=== PATIENT | female | born 1955 | race Caucasian/White ===

== ENCOUNTER 2018-12-20 12:13 | Observation (INO) ==
[2018-12-20 12:54] LABS: Bilirubin,Urine Negative (Negative); Clarity,Urine Clear (Clear); Glucose,Urine (UA) Negative (Negative); Leukocyte Esterase,Urine Negative (Negative); Nitrite,Urine Negative (Negative); Urobilinogen,Urine 0.2 mg/dL (Less than 2)
[2018-12-20 12:57] LABS: Color,Urine Straw (Yellw/Straw)
--- NOTE | 2018-12-20 13:09 | ED ---
HPI General Chief Complaint: Arrhythmia / Palpitations Stated Complaint: Palpatations/Irregular HR Per Pt Time Seen by Provider: 12/20/18 12:42 Source: patient and family Mode of arrival: ambulatory Limitations: no limitations History of Present Illness HPI narrative: Patient presents with complaints of palpitations intermittently over the last month however in the last 3-4 days they have become increasingly worse and more persistent. States she is not having palpitations now. Admits to the of a friend this week and the of her dog last night. Nondiabetic. Non-smoker. No radiation to left arm or left jaw. No diaphoresis. No shortness of breath. Reports a history of anxiety. No family history of cardiac disease. No personal history of cardiac disease. MD complaint: Reports rapid heart beat and "heart racing" Onset (ago): month(s) (1, worse over the last 3-4 days) Duration: intermittent Severity: moderate Context: Reports occurred during rest and occurred during exertion Arrhythmia history: Reports other (History of tachycardia approximately 40 years ago after the of her daughter) Associated symptoms: Reports denies other symptoms Treatments prior to arrival: Reports vagal maneuvers Related Data Home Medications Medication Instructions Recorded Confirmed Ca-D3-mag ap-lseo-fiz-dawson-bor 1 tab PO DAILY 12/20/18 12/20/18 [Calcium 600-D3 Plus] alprazolam [Xanax] 0.5 mg PO HS PRN 12/20/18 12/20/18 aspirin [Aspirin Low Dose] 81 mg PO QPM 12/20/18 12/20/18 biotin 10,000 mcg PO DAILY 12/20/18 12/20/18 citalopram [Celexa] 20 mg PO DAILY 12/20/18 12/20/18 conjugated estrogens [Premarin] 0.3 mg PO DAILY 12/20/18 12/20/18 cyanocobalamin (vitamin B-12) 1,000 mcg PO DAILY 12/20/18 12/20/18 [Vitamin B-12] ergocalciferol (vitamin D2) 1 unit PO WEEKLY 12/20/18 12/20/18 [Ergocal] wqnulmcymlq-yvizlhqya-lhl C-Mn 1 tab PO QPM 12/20/18 12/20/18 [Glucosamine Chondroitin MaxStr] levothyroxine [Synthroid] 88 mcg PO DAILY 12/20/18 12/20/18 meloxicam 15 mg PO QPM 12/20/18 12/20/18 montelukast [Singulair] 10 mg PO QAM 12/20/18 12/20/18 simvastatin [Zocor] 40 mg PO QPM 12/20/18 12/20/18 teriparatide [Forteo] 20 mcg SUBCUT DAILY 12/20/18 12/20/18 vit C-vit V-kkizfg-jsx-om-3 1 cap PO QPM 12/20/18 12/20/18 [Ocuvite] zolpidem [Ambien] 1 tab PO HS 12/20/18 12/20/18 Allergies Allergy/AdvReac Type Severity Reaction Status Date / Time No Known Allergies Allergy Verified 12/20/18 12:15 Review of Systems ROS: all other systems reviewed are negative [facility] Medical History Medical History Bladder spasms (Acute) COPD (chronic obstructive pulmonary disease) (Acute) Depression (Acute) High cholesterol (Acute) Hx of hysterectomy (Acute) Hypothyroidism (Acute) Osteoarthritis (Acute) Osteoporosis (Acute) Liao syndrome (Acute) Scoliosis (Acute) Surgical History Surgical History Hx of breast augmentation (Acute) Hx of cholecystectomy (Acute) Hx of thumb surgery (Acute) Hx of tubal ligation (Acute) Social History Social History Substance History: No History of Abuse Second Hand Smoke Exposure: No Smoking Status: Unknown if ever smoked How Often Do You Have a Drink Containing Alcohol: Monthly or less Recent Travel in [facility] within the Last 8 Weeks: No Recent Out of Country Travel within the Last 8 Weeks: No Immunization History Tetanus Immunization: <5 Years Exam Narrative Exam Narrative: GENERAL: Well-nourished, well-developed patient. SKIN: Focused skin assessment warm/dry. HEAD: Normocephalic. EYES: No scleral icterus. No injection or drainage. NECK: Supple, trachea midline. No JVD or lymphadenopathy. CARDIOVASCULAR: Regular rate and rhythm without murmurs, gallops, or rubs. RESPIRATORY: Breath sounds equal bilaterally. No accessory muscle use. GASTROINTESTINAL: Abdomen soft, normal bowel sounds, non-tender, nondistended. MUSCULOSKELETAL: No cyanosis, or edema. BACK: Nontender without obvious deformity. No CVA tenderness. Course Initial Documented Vital Signs Temperature 98.5 F 12/20/18 12:14 Pulse Rate 98 H 12/20/18 12:14 Respiratory Rate 18 12/20/18 12:14 Blood Pressure 191/83 H 12/20/18 12:14 Pulse Oximetry 99 12/20/18 12:14 Last Documented Vital Signs Temperature 98.5 F 12/20/18 12:14 Pulse Rate 80 12/20/18 15:24 Respiratory Rate 18 12/20/18 15:24 Blood Pressure 162/77 H 12/20/18 15:24 Pulse Oximetry 98 12/20/18 15:24 Medical Decision Making MDM Narrative Medical decision making narrative: Patient resting comfortably. Spoke with Dr. Salinas who recommended observation admission and stress test in the morning. Spoke with Dr. Monson who is in agreement will admit. Medical Screen Exam Complete: Yes Emergency Medical Condition: Yes Differential Diagnosis Differential Diagnosis: Dysrhythmia, palpitations, SVT, anxiety, acute coronary syndrome Medical Records Medical records reviewed: Yes I reviewed the patient's medical records. Lab Data Lab results reviewed: Yes I reviewed the patient's lab results. Result diagrams: 12/20/18 13:15 12/20/18 13:15 Lab Results 12/20/18 12/20/18 12/20/18 Range/Units 12:29 13:15 13:15 CBC w Diff Auto diff final WBC 8.4 (4.0-11.0) th/mm3 RBC 4.48 (4.00-5.30) mil/mm3 Hgb 14.0 (11.6-15.3) gm/dL Hct 42.4 (35.0-46.0) % MCV 94.6 (80.0-100.0) fL MCH 31.3 (27.0-34.0) pg MCHC 33.1 (32.0-36.0) % RDW 14.1 (11.6-17.2) % Plt Count 285 (150-450) th/mm3 MPV 7.6 (7.0-11.0) fL Neut % (Auto) 68.0 (16.0-70.0) % Lymph % (Auto) 22.0 (9.0-44.0) % [place] % (Auto) 8.7 H (0.0-8.0) % Eos % (Auto) 0.7 (0.0-4.0) % Baso % (Auto) 0.6 (0.0-2.0) % Neut # (Auto) 5.7 (1.8-7.7) th/mm3 Lymph # (Auto) 1.8 (1.0-4.8) th/mm3 [place] # (Auto) 0.7 (0.0-0.9) th/mm3 Eos # (Auto) 0.1 (0.0-0.4) th/mm3 Baso # (Auto) 0.1 (0.0-0.2) th/mm3 WBC Differential . Differential Comment . Sodium 140 (136-145) meq/L Potassium 3.8 (3.5-5.1) meq/L Chloride 103 (98-107) meq/L Carbon Dioxide 30.0 (21.0-32.0) meq/L Anion Gap 7 (5-15) meq/L BUN 11 (7-18) mg/dL Creatinine 0.74 (0.50-1.00) mg/dL Estimated GFR 79 L (>89) mL/min Random Glucose 95 (74-106) mg/dL Calcium 10.1 (8.5-10.1) mg/dL Total Bilirubin 0.3 (0.2-1.0) mg/dL AST 20 (15-37) U/L ALT 20 (10-53) U/L Alkaline Phosphatase 108 (45-117) U/L Troponin I 0.25 H (0.02-0.05) ng/mL Total Protein 7.9 (6.4-8.2) g/dL Albumin 4.2 (3.4-5.0) g/dL Ur Collection Type Clean catch Urine Color Straw (Yellw/Straw) Urine Clarity Clear (Clear) Urine pH 6.0 (5.0-8.5) Ur Specific [place] 1.020 (1.002-1.035) Urine Protein Negative (Neg-Trace) mg/dL Urine Glucose (UA) Negative (Negative) mg/dL Urine Ketones Negative (Negative) mg/dL Urine Occult Blood Trace (Negative) Urine Nitrate Negative (Negative) Urine Bilirubin Negative (Negative) Urine Urobilinogen 0.2 (Less than 2) mg/dL Ur Leukocyte Esterase Negative (Negative) Urine WBC 0-5 (0-5) /hpf Ur Squamous Epith Cells 0-5 (0-5) /hpf Micro UA Comment Culture not ind Ur Microscopic Review Microscopic reviewed Urine Culture Comments Culture not ind Imaging Data Radiologist's impression: Chest X-Ray 12/20/18 13:05 CONCLUSION: Hyperinflation without failure Small patchy areas of airspace disease in both lungs. CT scan may be of benefit. ECG Data Attestation: I personally reviewed and interpreted this ECG as follows: ( Initial EKG revealed sinus tachycardia with frequent supraventricular premature complexes nonspecific ST wave abnormalities, ventricular rate of 110. Second EKG reveals sinus rhythm again with occasional supraventricular premature complexes rate of [address] changes in V3.) Discharge Plan Discharge Disposition Patient Disposition: ED Admit(ED Internal Use Only) Discharge Condition Condition: Good Discharge Order Discharge Orders: ED Use Only Admit Order (Routine); Ordered 12/20/18 Ordered By: Bear Bond Discharge Details Diagnosis: Elevated troponin I level, Heart palpitations Physicians Team ED Provider: Bear Bond Primary Care Provider: Mercedes Flanagan Attending Provider: Memo Curran Status ED Status: Admitted Observation Patient
[2018-12-20 13:18] LABS: Squamous Epithelial Cell,Urine 0-5 /hpf (0-5); WBC,Urine 0-5 /hpf (0-5)
[2018-12-20 13:31] LABS: Baso # (Auto) 0.1 th/mm3 (0.0-0.2); Baso % (Auto) 0.6 % (0.0-2.0); Eos # (Auto) 0.1 th/mm3 (0.0-0.4); Eos % (Auto) 0.7 % (0.0-4.0); Hematocrit 42.4 % (35.0-46.0); Lymph # (Auto) 1.8 th/mm3 (1.0-4.8); Mean Corpuscular HGB Conc 33.1 % (32.0-36.0); Mean Corpuscular Hemoglobin 31.3 pg (27.0-34.0); Mean Corpuscular Volume 94.6 fL (80.0-100.0); Mean Platelet Volume 7.6 fL (7.0-11.0); Mono # (Auto) 0.7 th/mm3 (0.0-0.9); Mono % (Auto) 8.7 % (0.0-8.0); Neut # (Auto) 5.7 th/mm3 (1.8-7.7); Platelet Count 285 th/mm3 (150-450); Red Blood Count 4.48 mil/mm3 (4.00-5.30); Red Cell Distribution Width 14.1 % (11.6-17.2); White Blood Count 8.4 th/mm3 (4.0-11.0)
--- NOTE | 2018-12-20 13:39 | XR ---
EXAM DATE: 12/20/2018 1:20 PM EST AGE/SEX: 63 years / Female INDICATIONS: Chest pain, irregular heart rate CLINICAL DATA: This is the patient's initial encounter. Patient reports that signs and symptoms have been present for 3 days and indicates a pain score of 6/10. MEDICAL/SURGICAL HISTORY: None. None. COMPARISON: No prior exams available for comparison. FINDINGS: Moderate emphysematous changes are present in both lungs with hyperinflation. Heart is small. Pleural thickening is seen in both apices. Small patchy nodular opacities are seen in both lungs that could be airspace disease. I don't see displaced rib fracture however osteopenia makes detection of subtle rib fractures difficu lt CONCLUSION: Hyperinflation without failure Small patchy areas of airspace disease in both lungs. CT scan may be of benefit. Electronically signed by: Conrado Bates MD Board Certified Radiologist 12/20/2018 1:37 PM EST
[2018-12-20 13:49] LABS: Chloride 103 meq/L (98-107); Potassium 3.8 meq/L (3.5-5.1); Sodium 140 meq/L (136-145)
[2018-12-20 13:52] LABS: Albumin 4.2 g/dL (3.4-5.0); Calcium 10.1 mg/dL (8.5-10.1)
[2018-12-20 13:53] LABS: Anion Gap 7 meq/L (5-15); Blood Urea Nitrogen 11 mg/dL (7-18); Glucose,Random 95 mg/dL (74-106)
[2018-12-20 13:55] LABS: Alanine Aminotransferase 20 U/L (10-53)
[2018-12-20 13:56] LABS: Aspartate Aminotransferase 20 U/L (15-37); Glomerular Filtration Rate 79 mL/min (>89)
[2018-12-20 13:57] LABS: Total Protein 7.9 g/dL (6.4-8.2)
[2018-12-20 13:58] LABS: Alkaline Phosphatase 108 U/L (45-117)
[2018-12-20 14:00] LABS: Troponin I 0.25 ng/mL (0.02-0.05)
--- NOTE | 2018-12-20 16:15 | P.HPIM ---
History of Present Illness Primary Care Physician: Mercedes Flanagan Chief Complaint: Chest pain History of Present Illness: This is a 63-year-old female patient with a known medical history of hyperlipidemia, COPD, hypothyroidism who presented to the ED with complaints of palpitations and chest pain. Patient states that over the last 3 weeks she has had intermittent palpitations that have been coming and going without any known aggravating or alleviating factors. She states that over the last 3 days the palpitations have become more persistent and has been associated with chest pain. Patient states that the chest pain started in the right chest and radiated toward her midsternal chest, was pressure-like in nature, rated an 8 out of 10 at its worst on pain scale, associated with shortness of breath and sweating. Patient states that she has been under a lot of stress with the of her friend as well as the of her dog this week. She did go to her primary care physician office and was given a Holter monitor although does not know the results. Denies any recent illness including fever, chills, cough, headache, abdominal pain, nausea, vomiting, diarrhea or dysuria. Patient does admit to significant family medical history of cardiovascular disease, her father underwent a CABG at 52 years old. Denies tobacco use. Does admit to a stress test 5 years ago which was reportedly unremarkable. Denies any new changes to her medications. Review of Systems Review of Systems: all other systems reviewed are negative [facility] Medical History Medical History Bladder spasms (Acute) COPD (chronic obstructive pulmonary disease) (Acute) Depression (Acute) High cholesterol (Acute) Hx of hysterectomy (Acute) Hypothyroidism (Acute) Osteoarthritis (Acute) Osteoporosis (Acute) Liao syndrome (Acute) Scoliosis (Acute) Surgical History Surgical History Hx of breast augmentation (Acute) Hx of cholecystectomy (Acute) Hx of thumb surgery (Acute) Hx of tubal ligation (Acute) Social History Social History Substance History: No History of Abuse Second Hand Smoke Exposure: No Smoking Status: Never smoker How Often Do You Have a Drink Containing Alcohol: 2 to 4 times a month Recent Travel in [facility] within the Last 8 Weeks: No Recent Out of Country Travel within the Last 8 Weeks: No Immunization History Tetanus Immunization: <5 Years Medications and Allergies Allergies Allergy/AdvReac Type Severity Reaction Status Date / Time No Known Allergies Allergy Verified 12/20/18 12:15 Home Medications Medication Instructions Recorded Confirmed Type Ca-D3-mag km-vzrj-rof-dawson-bor 1 tab PO DAILY 12/20/18 12/20/18 History [Calcium 600-D3 Plus] alprazolam [Xanax] 0.5 mg PO HS PRN 12/20/18 12/20/18 History aspirin [Aspirin Low Dose] 81 mg PO QPM 12/20/18 12/20/18 History biotin 10,000 mcg PO DAILY 12/20/18 12/20/18 History citalopram [Celexa] 20 mg PO DAILY 12/20/18 12/20/18 History conjugated estrogens [Premarin] 0.3 mg PO DAILY 12/20/18 12/20/18 History cyanocobalamin (vitamin B-12) 1,000 mcg PO DAILY 12/20/18 12/20/18 History [Vitamin B-12] ergocalciferol (vitamin D2) 1 unit PO WEEKLY 12/20/18 12/20/18 History [Ergocal] nerayrycvoo-spqihovur-mhl C-Mn 1 tab PO QPM 12/20/18 12/20/18 History [Glucosamine Chondroitin MaxStr] levothyroxine [Synthroid] 88 mcg PO DAILY 12/20/18 12/20/18 History meloxicam 15 mg PO QPM 12/20/18 12/20/18 History montelukast [Singulair] 10 mg PO QAM 12/20/18 12/20/18 History simvastatin [Zocor] 40 mg PO QPM 12/20/18 12/20/18 History teriparatide [Forteo] 20 mcg SUBCUT DAILY 12/20/18 12/20/18 History vit C-vit K-aqzuyw-aaf-om-3 1 cap PO QPM 12/20/18 12/20/18 History [Ocuvite] zolpidem [Ambien] 1 tab PO HS 12/20/18 12/20/18 History Active Medications: Active Medications Sodium Chloride (Ns Flush) 2 ml IV.FLUSH UNSCH PRN PRN Reason: FLUSH AFTER USING IV ACCESS Last Admin: 12/20/18 15:26 Dose: 2 ml Physical Exam Vital signs: Vital Signs 12/20/18 12:14 12/20/18 12:43 12/20/18 13:05 Temperature 98.5 F Pulse Rate 98 H 100 H 81 Respiratory Rate 18 18 18 Blood Pressure 191/83 H 172/61 H 167/71 H Pulse Oximetry 99 96 99 12/20/18 15:24 Temperature Pulse Rate 80 Respiratory Rate 18 Blood Pressure 162/77 H Pulse Oximetry 98 Intake & Output 12/19/18 12/20/18 12/20/18 18:59 06:59 18:59 Weight 60 kg Narrative: GENERAL: Well-developed, well-nourished patient in NAD. Tearful. SKIN: Warm and dry. No rash. HEAD: Normocephalic. Atraumatic. EYES: Pupils equal and round. No scleral icterus. No injection or drainage. ENT: No nasal bleeding or discharge. Mucous membranes pink and moist. NECK: Supple. Trachea midline. CARDIOVASCULAR: Regular rate and rhythm. S1, S2 noted. No murmur appreciated. No reproducible chest discomfort. RESPIRATORY: No accessory muscle use. Clear to auscultation. Breath sounds equal bilaterally. GASTROINTESTINAL: Abdomen soft, non-tender, nondistended. Normoactive bowel sounds x4. MUSCULOSKELETAL: No obvious deformities. Extremities without clubbing, cyanosis , or edema. NEUROLOGICAL: Awake and alert. No obvious cranial nerve deficits. Motor grossly within normal limits. 5/5 muscle strength in bilateral upper and lower extremities. Normal speech. PSYCHIATRIC: Appropriate mood and affect; insight and judgment normal. Results Labs CBC & Chem 7: 12/20/18 13:15 12/20/18 13:15 Imaging Impressions Chest X-Ray 12/20/18 13:05 CONCLUSION: Hyperinflation without failure Small patchy areas of airspace disease in both lungs. CT scan may be of benefit. Caprini VTE Risk Assessment Caprini VTE Risk Assessment: Moderate/High Risk (score >= 2) Caprini Risk Assessment Model: Point Value = 1 Point Value = 2 Point Value = 3 Point Value = 5 Age 41-60 Minor surgery BMI > 25 kg/m2 Swollen legs Varicose veins or History of unexplained or recurrent spontaneous Oral contraceptives or hormone replacement Sepsis (< 1 month) Serious lung disease, including pneumonia (< 1 month) Abnormal pulmonary function Acute myocardial infarction Congestive heart failure (< 1 month) History of inflammatory bowel disease Medical patient at bed rest Age 61-74 Arthroscopic surgery Major open surgery (> 45 min) Laparoscopic surgery (> 45 min) Malignancy Confined to bed (> 72 hours) Immobilizing plaster cast Central venous access Age >= 75 History of VTE Family history of VTE Factor V Leiden Prothrombin 14060M Lupus anticoagulant Anticardiolipin antibodies Elevated serum homocysteine Heparin-induced thrombocytopenia Other congenital or acquired thrombophilia Stroke (< 1 month) Elective arthroplasty Hip, pelvis, or leg fracture Acute spinal cord injury (< 1 month) Prophylaxis Regimen: Total Risk Factor Score Risk Level Prophylaxis Regimen 0-1 Low Early ambulation 2 Moderate Order ONE of the following: *Sequential Compression Device (SCD) *Heparin 5000 units SQ BID 3-4 Higher Order ONE of the following medications: *Heparin 5000 units SQ TID *Enoxaparin/Lovenox 40 mg SQ daily (WT < 150 kg, CrCl > 30 mL/min) *Enoxaparin/Lovenox 30 mg SQ daily (WT < 150 kg, CrCl > 10-29 mL/min) *Enoxaparin/Lovenox 30 mg SQ BID (WT < 150 kg, CrCl > 30 mL/min) AND/OR *Sequential Compression Device (SCD) 5 or more Highest Order ONE of the following medications: *Heparin 5000 units SQ TID (Preferred with Epidurals) *Enoxaparin/Lovenox 40 mg SQ daily (WT < 150 kg, CrCl > 30 mL/min) *Enoxaparin/Lovenox 30 mg SQ daily (WT < 150 kg, CrCl > 10-29 mL/min) *Enoxaparin/Lovenox 30 mg SQ BID (WT < 150 kg, CrCl > 30 mL/min) AND *Sequential Compression Device (SCD) Assessment and Plan Plan This is a 63-year-old female patient with no medical history of hyperlipidemia, COPD, hypothyroidism who presented to the ED with complaints of chest pain. Chest pain with elevated troponin Rule out NSTEMI -Patient is been admitted for observation. Complaint of palpitations x 3 weeks with worsening chest pain the last three days. -Serial EKGs and serial troponins have been ordered for ruling out ACS purposes. -Initial troponin 0.25. Will continue to monitor trends. -EKG reviewed showing controlled heart rate, multiple PACs, no ST changes. -Will continue on cardiac telemetry, monitor for any arrhythmias. -Cardiology has been consulted, awaiting input recommendations. For now will continue to monitor trends. -Patient had a holter monitor outpatient this week, unaware of results, elevated troponin could be secondary to arrhythmia. -Allow to eat. NPO after midnight. -Likely will undergo a myocardial perfusion scan vs cardiac cath in am depending on cardiology recommendations. -Supportive care. Elevated BP -Denies any history of hypertension. Systolic in the 190's on presentation. -Will continue to monitor trends. -Add daily Norvasc. Hyperlipidemia -Continue home statin. Hypothyroidism -Continue home levothyroxine. Anxiety -Patient admits to loosing her best friend and dog in the last week. -Does take Xanax at home. Will continue. DVT prophylaxis: SCDs. Heparin. D/w patient, Dr. Curran and Dr. Anand.
[2018-12-20] MEDS ORDERED: Montelukast 10 MG Tablet PO SCH (16:30)
[2018-12-20 17:16] LABS: Troponin I 0.18 ng/mL (0.02-0.05)
--- NOTE | 2018-12-20 17:20 | MB ---
cc: Abdelrahman Anand MD DATE: 12/20/2018 REASON FOR CONSULTATION: Atypical chest pain, palpitations and abnormal troponin. HISTORY OF PRESENT ILLNESS: The patient is a very pleasant 63-year-old woman with no prior cardiac history. About three weeks ago, she began having what she describes as pretty severe right upper chest pain radiating to her right epigastric region for which she was given Nexium with some improvement. However, shortly after this time, she began having fairly long length palpitations, which she describes as brief bouts of irregular heartbeat, followed by a number of irregular beats. She says she did take her pulse. It does not feel that her pulse was particularly fast, but it was irregular for hours at a time. She does feel like there were periods of regular heart rates between short bursts of irregularity, but again this is all fairly vague given she was only taking her pulse and was not on a monitor. Of note, the patient did wear a Holter monitor about a week ago for which she does not know the results, but she feels that she did not have any significant arrhythmia during that Holter monitor. Upon evaluation in the emergency department, she was found to have an abnormal troponin of 0.25 and thus I was asked to provide recommendations. Currently, the patient feels tired and can feel occasional palpitation, but she says they are easing off compared to their most severe. She does feel that "something is wrong." PAST MEDICAL HISTORY: Hypertension, hypothyroidism, hyperlipidemia. ALLERGIES: NO KNOWN DRUG ALLERGIES. PHYSICAL EXAMINATION: VITAL SIGNS: Afebrile, pulse 80, respiratory rate 18, BP 162/77, saturating 98% on room air. GENERAL: A very pleasant woman in no distress. NECK: No JVD. LUNGS: Clear to auscultation bilaterally. CARDIOVASCULAR: Regular rate and rhythm, occasional ectopic beats are heard. No significant murmurs. ABDOMEN: Benign. EXTREMITIES: No edema. LABORATORY DATA: Sodium 140, potassium 3.8, chloride 103, bicarbonate 30.0, BUN 11, creatinine 0.74, glucose 95. White count 8.4, hematocrit 42.4, platelets 285. EKG shows sinus rhythm with occasional PACs and nonspecific ST changes. IMPRESSION: Palpitations, chest pain and abnormal troponin. PLAN: The patient has the constellation of findings described above. I have several theories. One would be she has acute coronary syndrome and we will see a higher troponin level at her next draw. Another possibility is that she has had bouts of atrial fibrillation with rapid ventricular rate and we are seeing a slight troponin bump from that arrhythmia. Yet another possibility is that she has had significantly high blood pressures as seen on arrival here () which could have caused the troponin elevation and she is primarily symptomatic from her palpitations. To work this up, she will require a Holter monitor and some form of ischemic workup. The patient wishes to be as noninvasive as possible, so if her troponins stay in this range, I will have her undergo a nuclear stress test tomorrow. However, if they raise appreciably, she will require cardiac catheterization. Further recommendations based on all of the above. Thank you again for the opportunity to participate in this patient's care. MD ROBERTO Mott/trevor , 04:42 PM , 04:49 PM
[2018-12-20] MEDS ORDERED: Regadenoson Inj 0.4 MG/5 ML Syringe IV.PUSH ONE (17:39)
[2018-12-20] MEDS ORDERED: Meloxicam 15 MG Tablet PO SCH (18:00)
[2018-12-20] MEDS: Montelukast 10 MG Tablet PO SCH (19:08)
[2018-12-20] MEDS ORDERED: Meloxicam 7.5 MG Tablet PO SCH (20:00)
[2018-12-20 20:33] LABS: Troponin I 0.19 ng/mL (0.02-0.05)
[2018-12-20] MEDS: Metoprolol Tartrate 50 MG Tablet PO SCH (20:56)
[2018-12-20] MEDS: Heparin - SQ 10,000 UNITS/ML Vial SQ SCH (20:57)
[2018-12-20] MEDS ORDERED: Zolpidem Tartrate 5 MG Tablet PO SCH (21:00)
[2018-12-21] MEDS ORDERED: Levothyroxine 88 MCG Tablet PO SCH (06:00)
[2018-12-21] MEDS ORDERED: amLODIPine 5 MG Tablet PO SCH (09:00)
[2018-12-21] MEDS ORDERED: Citalopram 20 MG Tablet PO SCH (09:00)
[2018-12-21] MEDS ORDERED: TERIPARATIDE 20 MCG SQ SCH (09:00)
[2018-12-21] MEDS ORDERED: Aspirin 325 MG Tablet PO SCH (09:00)
[2018-12-21] MEDS: Metoprolol Tartrate 50 MG Tablet PO SCH (09:03)
[2018-12-21] MEDS: Heparin - SQ 10,000 UNITS/ML Vial SQ SCH (09:04)
[2018-12-21] MEDS: Montelukast 10 MG Tablet PO SCH (09:11)
[2018-12-21] MEDS ORDERED: Acetaminophen 325 MG Tablet PO PRN (09:29)
--- NOTE | 2018-12-21 09:40 | P.PNIM ---
Subjective Interval history: Follow-up chest pain. Patient seen and examined status post nuclear stress test. Report reviewed showing no ischemia and adequate EF. Explained to patient that this could be palpitations due to an arrhythmia, started on metoprolol twice daily. Could also be underlying stress. Advised to avoid caffeine. Cardiology cleared for discharge. Will have patient follow- up with lining setter as well as PCP. All questions answered. Physical Exam Vital signs: Vital Signs 12/20/18 12:14 12/20/18 12:43 12/20/18 13:05 Temperature 98.5 F Pulse Rate 98 H 100 H 81 Respiratory Rate 18 18 18 Blood Pressure 191/83 H 172/61 H 167/71 H Pulse Oximetry 99 96 99 12/20/18 15:24 12/20/18 16:17 12/20/18 20:00 Temperature 98.3 F Pulse Rate 80 73 64 Respiratory Rate 18 18 16 Blood Pressure 162/77 H 142/75 H 135/68 Pulse Oximetry 98 99 100 12/21/18 00:00 12/21/18 04:00 Temperature 97.9 F 97.7 F Pulse Rate 70 69 Respiratory Rate 16 18 Blood Pressure 109/54 L 110/56 L Pulse Oximetry 99 99 Intake & Output 12/20/18 12/21/18 12/21/18 18:59 06:59 18:59 Weight 60 kg 60.2 kg Other: Weight On Admission 60.7 kg Narrative: GENERAL: Well-developed, well-nourished patient in [facility]. SKIN: Warm and dry. No rash. HEAD: Normocephalic. Atraumatic. EYES: Pupils equal and round. No scleral icterus. No injection or drainage. ENT: No nasal bleeding or discharge. Mucous membranes pink and moist. NECK: Supple. Trachea midline. CARDIOVASCULAR: Regular rate and rhythm. S1, S2 noted. No murmur appreciated. No reproducible chest discomfort. RESPIRATORY: No accessory muscle use. Clear to auscultation. Breath sounds equal bilaterally. GASTROINTESTINAL: Abdomen soft, non-tender, nondistended. Normoactive bowel sounds x4. MUSCULOSKELETAL: No obvious deformities. Extremities without clubbing, cyanosis , or edema. NEUROLOGICAL: Awake and alert. No obvious cranial nerve deficits. Motor grossly within normal limits. 5/5 muscle strength in bilateral upper and lower extremities. Normal speech. PSYCHIATRIC: Appropriate mood and affect; insight and judgment normal. Results Labs CBC & Chem 7: 12/20/18 13:15 12/20/18 13:15 Imaging Imaging: Impressions Chest X-Ray 12/20/18 13:05 CONCLUSION: Hyperinflation without failure Small patchy areas of airspace disease in both lungs. CT scan may be of benefit. Assessment and Plan Plan This is a 63-year-old female patient with no medical history of hyperlipidemia, COPD, hypothyroidism who presented to the ED with complaints of chest pain. Chest pain with elevated troponin -Patient is been admitted for observation. Complaint of palpitations x 3 weeks with worsening chest pain the last three days. -Serial EKGs and serial troponins have been ordered for ruling out ACS purposes. -Troponin trend flat. -EKG reviewed showing controlled heart rate, multiple PACs, no ST changes. -Will continue on cardiac telemetry, monitor for any arrhythmias. None overnight. -Cardiology has been consulted, appreciate input. Started on Metoprolol. Continue on DC. Ok to DC from cardiology standpoint. -Underwent a myocardial perfusion scan today. -Report unremarkable. Continue on metoprolol outpatient. Follow-up cardiology. -Advised patient to avoid caffeine use. Patient also has benzodiazepine at home , encouraged to take intermittently when under stress. Hypertension -Denies any history of hypertension. Systolic in the 190's on presentation. -Will continue to monitor trends. -Add daily Norvasc. Continue outpatient. Hyperlipidemia -Continue home statin. Hypothyroidism -Continue home levothyroxine. Anxiety -Patient admits to loosing her best friend and dog in the last week. -Does take Xanax at home. Will continue. DVT prophylaxis: SCDs. Heparin. D/w patient, Dr. Curran and Dr. Anand. DC home. Follow-up PCP and cardiology. Diet and activity as tolerated. Rx is written. Patient is stable and okay to discharge home. Progress Note: Quality VTE Deep Vein Thrombosis/Pulmonary Embolism Present on Admission: No
--- NOTE | 2018-12-21 11:14 | NM ---
EXAM DATE: 12/21/2018 10:54 AM EST AGE/SEX: 63 years / Female INDICATIONS:Angina. Abnormal Exercise Treadmill Test Substernal chest pain. CLINICAL DATA: This is the patient's initial encounter. Patient reports that signs and symptoms have been present for 2 days and indicates a pain score of 4/10. MEDICAL/SURGICAL HISTORY: Hypothyroidism. Chronic obstructive pulmonary disease. Hysterectomy. Cholecystectomy. Tubal ligation. COMPARISON: No prior exams available for comparison. DOSE: 8.4 mCi Tc 99m Myoview at rest 26.2 mCi [id number] at stress 0.4 mg Lexiscan STRESS SYMPTOMS: Nausea. EJECTION FRACTION: >70 % TECHNIQUE: The patient underwent pharmacologic stress with infusion of prescribed dose. Continuous ECG tracing was monitored during stress. Gated SPECT imaging was performed after stress and conventi onal SPECT imaging was performed at rest. The examination was performed on a SPECT/CT scanner, both attenuation and non-corrected datasets were reviewed. FINDINGS: Distribution: The maximum perfused segment at stress is in the lateral wall. Perfusion Study: The pattern of perfusion at stress is within normal limits. Gated Study: There are intact wall motion and wall thickening without hypokinetic or dyskinetic segm ents. The ejection fraction is calculated at >70%. RISK CATEGORY: Low (<1% Annual Mortality Rate) CONCLUSION: No areas of ischemia are seen. Electronically signed by: Boyd Hinson MD Board Certified Radiologist 12/21/2018 11:12 AM EST
--- NOTE | 2018-12-21 12:46 | ECG ---
Date Performed: 12/20/2018 Time Performed: 15:06:06 PTAGE: 63 years EKG: Sinus rhythm WITH OCCASIONAL SUPRAVENTRICULAR PREMATURE COMPLEXES MINIMAL ST DEPRESSION BORDERLINE ECG Compared t o PREVIOUS TRACING rate has slowed with some normalization in ST T changes PREVIOUS TRACIN 12/20/2018 12.22 DOCTOR: Demian Urban Interpretating Date/Time 12/21/2018 12:45:03
--- NOTE | 2018-12-21 12:46 | ECG ---
Date Performed: 12/20/2018 Time Performed: 12:22:07 PTAGE: 63 years EKG: SINUS TACHYCARDIA WITH FREQUENT SUPRAVENTRICULAR PREMATURE COMPLEXES NONSPECIFIC ST & T-WAV E ABNORMALITY ABNORMAL RHYTHM ECG NO PREVIOUS TRACING DOCTOR: Demian Urban Interpretating Date/Time 12/21/2018 12:44:38
--- NOTE | 2018-12-21 12:46 | ECG ---
Date Performed: 12/20/2018 Time Performed: 19:33:58 PTAGE: 63 years EKG: Sinus rhythm WITH OCCASIONAL SUPRAVENTRICULAR PREMATURE COMPLEXES MODERATE ST DEPRESSION ABNORMAL ECG ST-T change s are now more pronounced since prior tracing Clinical correlation is recommended PREVIOUS TRACING : 12/20/2018 15.06 DOCTOR: Demian Urban Interpretating Date/Time 12/21/2018 12:45:30
[2018-12-21 12:51] VITALS: BP 110/58; PULSE 63; RESP 20; TEMP 96.3; O2SAT 99
--- NOTE | 2018-12-21 14:48 | TR ---
Date Performed: 12/21/2018 Time Performed: 10:06:08 DOCTOR: Patricio Rock DRUG LIST: CLINICAL HISTORY: REASON FOR TEST: ABN STANDARD ETT REASON FOR ENDING: OBSERVATION: CONCLUSION: COMMENTS: Lexiscan stress test was performed under standard four minute protocol. Radionuclide was injected one minute prior to ending the test. No electrocardiographic abormalities were present t o suggest ischemia. Nuclear imaging and interpretation are pending.
== END 2018-12-21 12:58 | disposition home or self-care (01) ==
LOC: PHEDA 12:13 → PHED 12:13 → PH3 17:55
PROVIDERS: ADMIT Hospitalist; ATTEND Hospitalist
DX: I10 Essential (primary) hypertension; E78.5 Hyperlipidemia, unspecified; Z79.82 Long term (current) use of aspirin; F32.9 Major depressive disorder, single episode, unspecified; R00.2 Palpitations; E03.9 Hypothyroidism, unspecified; R74.8 Abnormal levels of other serum enzymes; M19.90 Unspecified osteoarthritis, unspecified site; Z79.899 Other long term (current) drug therapy; M81.0 Age-related osteoporosis without current pathological fracture; M41.9 Scoliosis, unspecified; F41.9 Anxiety disorder, unspecified; R07.89 Other chest pain; J44.9 Chronic obstructive pulmonary disease, unspecified
CPT/HCPCS: 71010; 71045; 78452; 80053; 81001; 82550; 84484; 85025; 93005; 93017; 96374; 99285; A9502; G0378; J1644; J2060; J2785; Q9969